=== PATIENT | born 1950 ===

== ENCOUNTER 2024-05-04 10:05 | Day surgery (SDC) | payer OTHER ==
[~2024-05-04] VITALS: Ht 170.2 cm; Wt 83.0 kg
[~2024-05-04 10:05] MED LIST: Lactated Ringer's 1,000 ML IV ONE; MOBIC15 MG PO
[2024-05-04] MEDS ORDERED: CeFAZolin Sodium 2,000 MG VIAL ONE (10:33)
[2024-05-04] MEDS ORDERED: Ketorolac Tromethamine 30mg Vial ONE (10:39)
[2024-05-04] MEDS ORDERED: Dexamethasone Sod Phos 10 MG/ML 1ML VIAL ONE ×2 (10:39→11:15)
[2024-05-04] MEDS ORDERED: FentaNYL Citrate 50 MCG/ML 2 ML Injection ONE ×2 (10:39→11:05)
[2024-05-04] MEDS ORDERED: Ondansetron HCl 2 MG / ML 2ML Vial ONE ×2 (10:39→11:15)
[2024-05-04] MEDS ORDERED: propofoL 0 ML IV ONE (10:39)
[2024-05-04] MEDS ORDERED: Lactated Ringer's 1,000 ML IV ONE (10:55)
[2024-05-04] MEDS ORDERED: Rocuronium Bromide 10 MG/ML 5ML Injection IV ONE (11:05)
[2024-05-04] MEDS ORDERED: propofoL 20 ML IV ONE (11:05)
[2024-05-04] MEDS ORDERED: Bupivacaine 0.5% HCl 5 MG/ML 30MLVIAL INJ ONE (11:20)
[2024-05-04] MEDS ORDERED: EPINEPhrine HCl 1 MG/ML 1ML Amp XX ONE (11:20)
--- NOTE | 2024-05-04 11:20 | NUR ---
05/04/24 1120 Julia Piper ROPIVACAINE 0.5% 30 ML MIXED & VERIFIED W/ EPI 0.15ML (1MG/ML) TO MAKE ROPIVACAINE 0.5% 1:200,000 FOR INJECTION AT [facility] [place].
[2024-05-04] MEDS ORDERED: Sugammadex Sodium 200 MG/2ML SDV (100 MG/ML) ONE (11:32)
[2024-05-04] MEDS ORDERED: OxyCODONE 5 mg/Acetamin 325 mg TABLET ONE (12:10)
--- NOTE | 2024-05-04 12:35 | NUR ---
05/04/24 1235 Manuel Ferguson, PT STATES PAIN OF 6/10 ON LEFT SHOULDER. POST-OP ORDER ALLOWED PERCOCET FOR PAIN PER MD. RN CLARIFIED WITH DR GATICA THAT HALF TABLET IS OK TO BE ADMINISTERED PT AND FAMILY REQUESTED. PT EATING AND DRINKING WITHOUT DIFFICULTY.
== END 2024-05-04 12:44 | disposition home or self-care (01) ==
LOC: ORSCSDS 10:05
PROVIDERS: Podiatrist Foot & Ankle Surgery
PROC: 0SPH04Z Removal of Internal Fixation Device from Right Tarsal Joint, Open Approach (ICD-10-PCS; principal; 2024-05-04 11:30)
DX: T84.84XA Pain due to internal orthopedic prosthetic devices, implants and grafts, initial encounter (principal); Q66.41 Congenital talipes calcaneovalgus, right foot
CPT/HCPCS: A9270; J0171; J0690; J1100; J1885; J2405; J2704; J3010; J7120